=== PATIENT | female | born 1950 | race Caucasian/White ===

== ENCOUNTER 2018-05-28 08:40 | Outpatient (CLI) | payer MEDICARE | END 2018-05-28 08:41 | disposition home or self-care (01) | LOC: SCSMAMMO 08:40 → BICMAMMO 08:41 | PROVIDERS: ATTEND Family Medicine | DX: Z12.31 Encounter for screening mammogram for malignant neoplasm of breast (principal) | CPT/HCPCS: 77063; 77067 ==

== ENCOUNTER 2018-10-26 10:09 | Outpatient (CLI) | payer MEDICARE ==
--- NOTE | 2018-10-26 13:15 | ULT ---
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 [place] None. FINDINGS: Real-time, mejia scale, and color evaluation of the thyroid was performed. The background vascularity is markedly increased. There is mild peripheral nodularity to the thyroid. This suggests active th yroiditis. The isthmus measures 4 mm in AP dimension. The right lobe measures 3.9 x 1.5 x 1.6 cm and the left l obe measures 3.4 x 1 x 1 cm. In the superior pole right lobe is a solid hypoechoic mass which is wider than tall with ill-defined margins without echogenic foci measuring up to 0.5 x 0.2 x 0.4 cm. This is TIRAD 4: moderately susp icious. Given its small size, no followup nor aspiration is required for TIRADS criteria. Interpolar region in the right lobe of the thyroid is a 1.9 x 1.6 x 1.6 cm solid isoechoic mass which is wider than tall sharp margins without echogenic foci. This is TIRADS 3: Mildly suspicious. Giv en its size, followup in 6 months-1 year is recommended. In the left lobe of the thyroid is a 0.4 x 0.2 x 0.3 cm mixed solid and cystic mass which is hypoecho ic wide than tall sharp margins without echogenic foci. This is TIRADS 3: mildly suspicious. Given its small size, no followup is required. IMPRESSION: 1. A total of 4 nodules in the thyroid for which followup in 6 months-1 year is recommended per YASMINE DS criteria for the largest right interlobar nodule. 2. Background hypervascularity as well as peripheral nodularity suggesting active thyroiditis. POS: CET
== END 2018-10-26 10:10 | disposition home or self-care (01) ==
LOC: SCSULT 10:09
PROVIDERS: ATTEND Otolaryngology Plastic Surgery within the Head & Neck
DX: D49.7 Neoplasm of unspecified behavior of endocrine glands and other parts of nervous system (principal); J30.9 Allergic rhinitis, unspecified; R05 Cough; E04.2 Nontoxic multinodular goiter
CPT/HCPCS: 76536

== ENCOUNTER 2019-05-13 09:04 | Outpatient (CLI) | payer MEDICARE ==
--- NOTE | 2019-05-13 09:44 | ULT ---
US Thyroid STANDARD History: E04.2 multiple thyroid nodules Comparison: Ultrasound October 2018 Findings: Isthmus measures 5 mm AP dimension. Right lobe measures 5 x 1.7 x 1.9 cm and the left lobe measures 3.6 x 1.1 x 1.4 cm. The small colloid cysts are similar. The dominant right lobe nodule has increased in size now measuri ng up to 2.6 cm in greatest dimension, previously measuring up to 1.9 cm. This mass is solid, isoechoic wider than tall with sharp margins without echogenic foci. Impression: Dominant right lobe nodule has increased in size, TI-RADS 3: Mildly suspicious. Given its size, fine-needle aspiration is recommended.
== END 2019-05-13 09:05 | disposition home or self-care (01) ==
LOC: BICULT 09:04
PROVIDERS: ATTEND Family Medicine
DX: E04.2 Nontoxic multinodular goiter (principal)
CPT/HCPCS: 76536

== ENCOUNTER 2019-05-28 11:58 | Day surgery (SDC) | payer MEDICARE ==
[2019-05-27 18:22] VITALS: BMI 24.3
[2019-05-28] MEDS ORDERED: Sodium Bicarbonate 2.5 MEQ/5 ML VIAL ONE (13:11)
[2019-05-28] MEDS ORDERED: Lidocaine 1% PF 5 ML VIAL ONE (13:11)
[2019-05-28 13:32] VITALS: BP 113/65; TEMP 97.8
--- NOTE | 2019-05-28 15:49 | ULT ---
EXAM: US Thyroid Needle Bx PROVIDED CLINICAL HISTORY: Dominant nodule right lobe of the thyroid gland. COMPARISON: Thyroid ultrasound 05/13/2019. TECHNIQUE: The procedure including the risks and complications were explained to the patient, and informed conse nt was obtained. Patient was placed on the sonography supine position. The dominant nodule in the right lobe of the thyroid gland was localized. An area was marked and then meticulously prepped and d raped in the usual sterile fashion. The skin and subcutaneous tissues were infiltrated with buffered 1% lidocaine for local anesthesia ov erlying the right thyroid nodule. Utilizing concurrent real-time ultrasound guidance, a total of four 25-gauge fine-needle aspiration specimens were obtained. Hemostasis was achieved with direct pre ssure. Dry sterile dressing was placed. The patient tolerated the procedure well and without immediate complication. IMPRESSION: Technically successful ultrasound-guided fine-needle aspiration of a dominant heterogeneous nodule ri ght lobe of the thyroid gland.
== END 2019-05-28 14:00 | disposition home or self-care (01) ==
LOC: ULT 11:58
PROVIDERS: ATTEND Family Medicine
PROC: 0GJK3ZZ Inspection of Thyroid Gland, Percutaneous Approach (ICD-10-PCS; principal; 2019-05-28)
DX: E04.2 Nontoxic multinodular goiter (principal); R00.1 Bradycardia, unspecified
CPT/HCPCS: 60100; 76942; 88173; J2001

== ENCOUNTER 2019-06-28 08:52 | Outpatient (CLI) | payer MEDICARE ==
--- NOTE | 2019-06-28 10:07 | MRI ---
MR angiogram of the head: 06/28/2019 COMPARISON: None HISTORY: Left eyelid droop, unilateral elevated ocular pressure TECHNIQUE: Multiplanar noncontrast enhanced [id number] MR angiography of the head obtained. FINDINGS: Antegrade blood flow noted within the distal vertebral arteries bilaterally. No evidence fo r high-grade stenosis, vascular occlusion, or saccular aneurysm is seen involving the posterior circulation. The imaged extracranial ICA is unremarkable bilaterally. The A1 segment is unremarkable bilaterally as are distal MAGGIE branches. Region of anterior communicati ng artery is unremarkable. The M1 segment appears unremarkable bilaterally as does the MCA bifurcation bilaterally. Distal MCA b ranches are intact. No saccular aneurysm, high-grade stenosis, or vascular occlusion is seen involving the anterior circulation. IMPRESSION: Unremarkable MR angiogram of the head.
--- NOTE | 2019-06-28 10:13 | MRI ---
BRAIN MRI WITH AND WITHOUT CONTRAST: HISTORY: Elevated eye pressure. Left eyelid droop times a month. COMPARISON: None. FINDINGS: Brain MRI: Hemorrhage: No parenchymal hemorrhage. No extra-axial hematoma. Calvarium: Appropriate T1 marrow signal intensity Midline brain parenchyma: Unremarkable Cerebrum:No parenchymal mass, mass effect or midline shift. Brain volume is age-appropriate. Focal g ray-white matter. Ventricles: No evidence of hydrocephalus. Sinuses and mastoid air cells: Mucosal thickening of the paranasal sinuses. Adequate mastoid air cell aeration. Diffusion: Central arterial flow is maintained. Absent restricted diffusion. Postcontrast images: No pathologic enhancement of the brain parenchyma. Orbit MRI: Optic chiasm, prechiasmatic optic nerves, intracanalicular and intracranial orbital optic nerves have symmetric signal intensity. No enhancement. No mass effect upon the optic chiasm. The visualized pituitary gland is grossly unremarkable. Midline pituitary stalk. Symmetric signal intensity of the optic nerves and ocular rectus muscles. Bilateral ocular lenses are appropriately located. Symmetric attenuation of the intraconal and extraconal fat. Slightly prominent superior ophthalmic veins. Cavernous carotid arterial flow void is maintained. 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 IMPRESSION: 1. No pathologic enhancement if the brain parenchyma. 2. Paranasal sinus mucosal thickening. 3. Prominent bilateral superior ophthalmic vein. Correlate for bilateral cavernous carotid fistula. Transcribed Date/Time: 06/28/2019 10:48 AM
== END 2019-06-28 08:53 | disposition home or self-care (01) ==
LOC: MRI 08:52
PROVIDERS: ATTEND Ophthalmology
DX: H40.052 Ocular hypertension, left eye (principal); J32.8 Other chronic sinusitis
CPT/HCPCS: 70544; 70553; 82565

== ENCOUNTER 2019-09-03 13:20 | Outpatient (CLI) | payer MEDICARE ==
--- NOTE | 2019-09-03 14:45 | CT ---
CT CHEST WITHOUT CONTRAST CLINICAL INDICATION: Chronic cough. Exposure to secondhand smoke. COMPARISON: None FINDINGS: Aorta: Normal in caliber. Likely intravenous contrast prevents evaluation for aortic dissection. Lungs: A calcified granuloma is seen in the anterior aspect of the right middle lobe. There is mild a telectasis versus scarring at each lung base. No noncalcified pulmonary nodule or mass is seen. Nonspecific pleural-based nodular densities are seen at the posterior aspect midlung zones bilaterall y. No pleural effusion is present. Mediastinum: Limited due to lack of intravenous contrast, but no enlarged lymph nodes are seen. Thyroid gland: A heterogeneous nodule measuring 1.5 cm is present in the right lobe of thyroid gland. There also appears to be an additional nodule in the region of the thyroid isthmus. Thyroid nodules were present on prior thyroid ultrasound exam on 05/13/2019. Osseous structures: Degenerative changes are seen in the thoracic spine. Chest wall: No abnormality visualized. Upper abdomen: Incompletely imaged 3 to 4 mm nonobstructing calculus is seen in the superior pole rig ht kidney. There are at least 3 subcentimeter nonspecific hypodense lesions seen in the right hepatic lobe with subcentimeter hypodense lesion dome of the liver which cannot be further characteri zed. IMPRESSION: 1. Heterogeneous nodule right lobe of thyroid gland which was seen on a prior thyroid ultrasound 2. No discrete dominant pulmonary nodule or mass is seen in the lungs bilaterally. A few nonspecific pleural-based nodular densities are seen. 3. Nonobstructing incompletely imaged right renal calculus. 4. Subcentimeter too small to characterize hypodense lesions in the liver.
== END 2019-09-03 13:21 | disposition home or self-care (01) ==
LOC: SCSCT 13:20
PROVIDERS: ATTEND Family Medicine
DX: R05 Cough (principal); Z77.22 Contact with and (suspected) exposure to environmental tobacco smoke (acute) (chronic); E04.1 Nontoxic single thyroid nodule; N20.0 Calculus of kidney; K76.9 Liver disease, unspecified
CPT/HCPCS: 71250

== ENCOUNTER 2019-11-07 09:12 | Outpatient (CLI) | payer MEDICARE ==
--- NOTE | 2019-11-14 13:24 | MMO ---
Bilateral MAMMO Bilat Screen [facility]. CLINICAL HISTORY: Patient is 69 years old and is seen for screening. The patient has the following family history of breast cancer: sister, at age 70. The patient has no personal history of cancer. VIEWS: The views performed were: bilateral craniocaudal with tomosynthesis; bilateral mediolateral oblique with tomosynthesis; and bilateral exaggerated craniocaudal. FILMS COMPARED: The present examination has been compared to prior imaging studies performed at [facility] on 06/23/2014, at [facility] on 07/26/2012, and at [facility] on 04/27/2017 and 05/28/2018. This study has been interpreted with the assistance of computer-aided detection. MAMMOGRAM FINDINGS: The breasts are heterogeneously dense, which could obscure a lesion on mammography. There are stable benign appearing calcifications seen in both breasts. There are no suspicious masses, suspicious calcifications, or new areas of architectural distortion. IMPRESSION: THERE IS NO MAMMOGRAPHIC EVIDENCE OF MALIGNANCY. A ROUTINE FOLLOW-UP MAMMOGRAM IN 1 YEAR IS RECOMMENDED. THE RESULTS OF THIS EXAM WERE SENT TO THE PATIENT. ACR BI-RADS Category 2 - Benign finding MAMMOGRAPHY NOTE: 1. A negative mammogram report should not delay a biopsy if a dominant of clinically suspicious mass is present. 2. Approximately 10% to 15% of breast cancers are not detected by mammography. 3. Adenosis and dense breasts may obscure an underlying neoplasm. Reported by: RAQUEL COLEMAN MD Electonically Signed: [id number]
== END 2019-11-07 09:13 | disposition home or self-care (01) ==
LOC: BICMAMMO 09:12
PROVIDERS: ATTEND Family Medicine
DX: Z12.31 Encounter for screening mammogram for malignant neoplasm of breast (principal); Z80.3 Family history of malignant neoplasm of breast
CPT/HCPCS: 77063; 77067

== ENCOUNTER 2019-11-22 12:11 | Outpatient (CLI) | payer MEDICARE ==
--- NOTE | 2019-11-22 12:24 | RAD ---
XR Chest Pa Lat @ [facility] HISTORY: Dyspnea COMPARISON: 01/09/2018 FINDINGS: The heart size is normal. The lungs are well expanded without focal areas of consolidation, pneumothorax or pleural effusions. IMPRESSION: No radiographic evidence of acute cardiopulmonary process.
== END 2019-11-22 12:12 | disposition home or self-care (01) ==
LOC: RAD 12:11
PROVIDERS: ATTEND Internal Medicine Critical Care Medicine
DX: R06.00 Dyspnea, unspecified (principal)
CPT/HCPCS: 71046

== ENCOUNTER 2020-10-06 15:00 | Outpatient (CLI) | payer MEDICARE, OTHER ==
--- NOTE | 2020-10-06 15:44 | ULT ---
Thyroid sonogram HISTORY: Thyroid nodule. COMPARISON: 05/13/2019. FINDINGS: Right thyroid lobe measures up to 4.8 cm. The dominant well-circumscribed complex predomina ntly isoechoic partially cystic mass at the inferior pole is 2.7 cm x 2.3 cm x 1.7 cm greatest diameters on today's exam. No significant change overall. Cystic component slightly greater. FNA performed a 20/04/2019 revealed a benign follicular nodule with cystic degeneration. A 0.7 cm well-circumscribed oval septated cyst is evident near the superior pole. Isthmus 0.3 cm. Left thyroid lobe measures up to 3.4 cm without mass. IMPRESSION : Little change of the right thyroid lobe nodule, with continued degeneration. No worrisome characteris tics. No new abnormalities.
== END 2020-10-06 15:01 | disposition home or self-care (01) ==
LOC: BICULT 15:00
PROVIDERS: ATTEND Family Medicine
DX: E04.1 Nontoxic single thyroid nodule (principal)
CPT/HCPCS: 76536

== ENCOUNTER 2020-11-09 09:41 | Outpatient (CLI) | payer MEDICARE ==
--- NOTE | 2020-11-09 10:40 | MMO ---
Bilateral MAMMO Bilat Screen [facility]. CLINICAL HISTORY: Patient is 70 years old and is seen for screening. The patient has the following family history of breast cancer: sister, at age 70. The patient has no personal history of cancer. VIEWS: The views performed were: bilateral craniocaudal with tomosynthesis and bilateral mediolateral oblique with tomosynthesis. FILMS COMPARED: The present examination has been compared to prior imaging studies performed at [facility] on 06/23/2014, and at [facility] on 04/27/2017, 05/28/2018 and 11/07/2019. This study has been interpreted with the assistance of computer-aided detection. MAMMOGRAM FINDINGS: The breasts are heterogeneously dense, which could obscure a lesion on mammography. There are stable benign appearing calcifications seen in both breasts. There are no suspicious masses, suspicious calcifications, or new areas of architectural distortion. IMPRESSION: THERE IS NO MAMMOGRAPHIC EVIDENCE OF MALIGNANCY. A ROUTINE FOLLOW-UP MAMMOGRAM IN 1 YEAR IS RECOMMENDED. THE RESULTS OF THIS EXAM WERE SENT TO THE PATIENT. ACR BI-RADS Category 2 - Benign finding MAMMOGRAPHY NOTE: 1. A negative mammogram report should not delay a biopsy if a dominant of clinically suspicious mass is present. 2. Approximately 10% to 15% of breast cancers are not detected by mammography. 3. Adenosis and dense breasts may obscure an underlying neoplasm. Reported by: RAQUEL COLEMAN MD Electonically Signed: [id number]
== END 2020-11-09 09:42 | disposition home or self-care (01) ==
LOC: BICMAMMO 09:41
PROVIDERS: ATTEND Family Medicine
DX: Z12.31 Encounter for screening mammogram for malignant neoplasm of breast (principal); Z80.3 Family history of malignant neoplasm of breast
CPT/HCPCS: 77063; 77067

== ENCOUNTER 2023-07-04 12:46 | Outpatient (CLI) | payer MEDICARE | END 2023-07-04 12:47 | disposition home or self-care (01) | LOC: SCSRAD 12:46 | PROVIDERS: ATTEND Internal Medicine | DX: R05.9 Cough, unspecified (principal) | CPT/HCPCS: 71046 ==

== ENCOUNTER 2024-02-08 13:38 | Outpatient (CLI) | payer MEDICARE | END 2024-02-08 13:39 | disposition home or self-care (01) | LOC: SCSRAD 13:38 | PROVIDERS: ATTEND Internal Medicine | DX: R05.9 Cough, unspecified (principal) | CPT/HCPCS: 71046 ==

== ENCOUNTER 2025-06-06 10:16 | Outpatient (CLI) | payer MEDICARE | END 2025-06-06 10:17 | disposition home or self-care (01) | LOC: RAD 10:16 | PROVIDERS: ATTEND Internal Medicine | DX: R06.00 Dyspnea, unspecified (principal) | CPT/HCPCS: 71046 ==